=== PATIENT | female | born 1945 | race Caucasian/White ===

== ENCOUNTER → 2022-04-24 | Day surgery (SDC) | payer MEDICARE, OTHER ==
[~2022-04-24] VITALS: Ht 160 cm; Wt 57.1 kg
[~2022-04-24] MED LIST: AIRBORNE IMMUNE PO; BUSPIRONE HCL10 MG PO; CALCIUM + D SO1 EACH PO; CARAFATE1 GM PO; COZAAR50 MG PO; DICLOFENAC POTA50 MG PO; METAMUCIL1 DOSE PO; OMEPRAZOLE40 MG PO; REPATHA SY140 MG/1 M SC; ST. JOSEPH ASPI81 M1 PO; VIACTIV 650 MG1 EACH PO; VITAMIN D3125 MC1 PO; ZYRTEC10 M3 PO
[2022-04-24 08:08] LABS: HCT 40.7 % (37.0-47.0); HGB 13.2 g/dl (12.5-16.0); MCH 30.3 pg (25.0-31.0); MCHC 32.4 g/dL (32.0-36.0); MCV 93.6 fL (78.0-100.0); MPV 9.6 fL (6.0-9.5); RBC 4.35 M/uL (4.20-5.40); RDW 13.1 % (11.5-14.0); WBC 8.2 K/uL (4.0-10.5)
[2022-04-24 09:43] LABS: ALBUMIN 4.3 g/dL (3.4-5.0); BUN/CREAT RATIO (CALC) 20.9 RATIO; CREATININE 0.91 mg/dL (0.51-0.95); GLOBULIN (CALCULATION) 2.9 g/dL; POTASSIUM 3.8 mmol/L (3.5-5.1); TOTAL PROTEIN 7.2 g/dL (6.4-8.2)
[2022-04-24 18:47] LABS: BILIRUBIN - TOTAL 0.5 mg/dL (0.2-1.0)
== END | disposition home or self-care (01) ==
LOC: FAS 07:36
PROVIDERS: Surgery
DX: R19.4 Change in bowel habit (principal); K21.9 Gastro-esophageal reflux disease without esophagitis; K29.70 Gastritis, unspecified, without bleeding; K25.3 Acute gastric ulcer without hemorrhage or perforation; K58.9 Irritable bowel syndrome, unspecified; K57.30 Diverticulosis of large intestine without perforation or abscess without bleeding; Z86.73 Personal history of transient ischemic attack (TIA), and cerebral infarction without residual deficits; Z87.891 Personal history of nicotine dependence; Z88.8 Allergy status to other drugs, medicaments and biological substances; Z79.82 Long term (current) use of aspirin
CPT/HCPCS: 36415; 80053; J1610; J2704; J7120